=== PATIENT | male | born 1970 | race Caucasian/White ===

== ENCOUNTER 2019-11-12 08:54 | Outpatient (CLI) | payer BC ==
--- NOTE | 2019-11-12 09:52 | CT ---
CT OF THE ABDOMEN WITH IV CONTRAST INDICATION: Right upper quadrant abdominal pain; history of liver transplant and partial right hepate ctomy COMPARISON: CT the abdomen with and without contrast dated February 21, 2011 from [facility]. FINDINGS: ABDOMEN: Lung bases: There is a stable small sub-4 mm pulmonary nodule within the left lower lobe which is haritha ign Liver: There is postprocedural change of a partial right hepatectomy. Surgical clips are seen near th e region of the portal vein and IVC. There is stable undulation of the contour of the liver. There is hypertrophy of the left hepatic lobe and caudate lobe. The spleen is mildly enlarged measuring 13. 3 cm. The above findings are stable to the prior exam. Gallbladder: Surgically absent Pancreas: Normal. Adrenal glands: Normal. Spleen: Mildly enlarged measuring 13.3 cm Kidneys and ureters: Normal. No hydronephrosis. Vasculature: Normal. Lymph nodes:A few shotty appearing lymph nodes are seen within the retroperitoneum which are stable t o the prior examination. The most prominent is seen adjacent to the right common iliac artery measuring 9 mm. A few shotty appearing lymph nodes are seen within the mesentery. None of which are p athologically enlarged. Free fluid in abdomen:No free fluid is evident. Osseous structures: No acute osseous abnormality. No destructive osteolytic or osteoblastic lesion i s identified. There is scattered degenerative and osteoarthritic changes. Soft tissues:There is a small fat-containing umbilicus hernia. IMPRESSION: 1. Stable post procedural change of a partial right hepatectomy. The gallbladder is surgically absent . The undulation involving the contour of the liver with hypertrophy of the left hepatic lobe and caudate lobe are similar appearing. Mild splenomegaly is stable. 2. No definite CT explanation for the patient's right upper quadrant abdominal pain.
== END 2019-11-12 08:55 | disposition home or self-care (01) ==
LOC: SCSCT 08:54
PROVIDERS: ATTEND Internal Medicine
DX: R10.11 Right upper quadrant pain (principal); R19.4 Change in bowel habit; R16.0 Hepatomegaly, not elsewhere classified; Z98.890 Other specified postprocedural states
CPT/HCPCS: 74160

== ENCOUNTER 2021-06-08 16:25 | Outpatient (CLI) | payer BC ==
[2021-06-08 17:33] LABS: #Basophils 0.1 10x3/uL (0.0-0.2); #Eosinphils 0.2 10x3/uL (0.0-0.5); #Monocytes 0.8 10x3/uL (0.0-1.1); #Neutrophils 4.8 10x3/uL (1.5-8.4); %Eosinophils 2.2 % (0.0-6.0); %Lymphocytes 25.1 % (18.0-47.0); %Monocytes 10.4 % (0.0-10.0); Hemoglobin 15.5 g/dL (13.5-17.5); Mean Corpuscular Hemoglobin 26.5 pg (27.0-33.0); Mean Corpuscular Volume 82.7 fl (81.2-95.1); Mean Platelet Volume 10.1 fl (7.4-10.4); Platelet Count 260 10x3/uL (150-450); RBC Distribution Width 13.9 % (11.5-14.5); Red Blood Cell (RBC) Count 5.85 10x6/uL (4.32-5.72); White Blood Cell (WBC) Count 7.9 10x3/uL (3.5-10.5)
[2021-06-08 17:44] LABS: Anion Gap 13 mmol/L (10-20); BUN (Urea Nitrogen) 20 mg/dL (8.9-20.6); Calc. Creatinine Clearance 0 mL/min (70-130); Calcium 10.2 mg/dL (7.8-10.44); Carbon Dioxide 28 mmol/L (22-29); Chloride 105 mmol/L (98-107); Glucose 90 mg/dL (70-105); Potassium 4.9 mmol/L (3.5-5.1); Sodium 141 mmol/L (136-145)
[2021-06-09 12:47] LABS: SARS-CoV-2 PCR by NAA Not Detected (NotDetected)
== END 2021-06-08 16:26 | disposition home or self-care (01) ==
LOC: LABBT 16:25
PROVIDERS: ATTEND Surgery
DX: Z01.818 Encounter for other preprocedural examination (principal); Z20.822 Contact with and (suspected) exposure to COVID-19
CPT/HCPCS: 80048; 85025; 93005; 93010; U0003; U0005

== ENCOUNTER 2022-03-27 07:57 | Outpatient (CLI) | payer BC | END 2022-03-27 07:58 | disposition home or self-care (01) | LOC: SCSMRI 07:57 → BICMRI 07:58 | PROVIDERS: ATTEND Family Medicine | DX: M47.816 Spondylosis without myelopathy or radiculopathy, lumbar region (principal); M51.9 Unspecified thoracic, thoracolumbar and lumbosacral intervertebral disc disorder; G89.4 Chronic pain syndrome | CPT/HCPCS: 72100; 72148 ==